=== PATIENT | male | born 1945 | race Caucasian/White ===

== ENCOUNTER 2020-11-15 23:50 | Emergency (ER) | payer MEDICARE, OTHER, SELFPAY ==
[2020-11-16 00:10] VITALS: BP 145/87; PULSE 84; RESP 16; TEMP 36.6; O2SAT 98; BMI 22.0
[2020-11-16 00:54] VITALS: BP 116/71; PULSE 87; RESP 15; TEMP 36.3; O2SAT 93
--- NOTE | 2020-11-16 00:56 | ED_ITS ---
HPI - Psych General Chief Complaint: Psychiatric Symptoms Stated Complaint: psychiatric symptoms Time Seen by Provider: 11/16/20 00:20 Source: patient Mode of arrival: ambulatory Limitations: no limitations History of Present Illness HPI Narrative: 75-year-old male with no significant past medical history or complaint presents for evaluation. States that he has been having a difficult time with an acquaintance, feels that she is in danger. Is asking for advice on how to obtain a wellness check. MD complaint: anxiety History of same: No Associated psychiatric symptoms: none Associated symptoms: denies other symptoms Related Data Allergies Allergy/AdvReac Type Severity Reaction Status Date / Time No Known Allergies Allergy Unverified 01/09/20 15:06 Review of Systems Review of Systems: Constitutional: No Fever, No Chills ENT/Mouth: No sore throat, No Rhinorrhea Eyes: No Eye Pain, No Swelling, No Redness Cardiovascular: No Chest Pain, No SOB Respiratory: No Cough, No Sputum Gastrointestinal: No Nausea, No Vomiting, No Diarrhea, No abdominal Pain Genitourinary: No Dysuria, No Hematuria Musculoskeletal: No joint pain, No Myalgias, No Joint Swelling Skin: No Skin Lesions, No rash Neuro: No Weakness, No Numbness, No Loss of Consciousness, No Dizziness, No Headache Psych: No Anxiety, No Depression, No SI/HI/AH/VH Heme/Lymph: No Bruising, No Bleeding,No Lymphadenopathy Endocrine: No Polyuria, No Polydipsia Yes all other systems are reviewed and are negative [facility] Past Medical History Attestation statement: The following information was validated with the patient. Source: old records reviewed Social History Social History Advance Directives: No Physical Exam Vital Signs: Vital Signs: Last Vital Signs Temp 97.4 F 11/16/20 00:54 Pulse 87 11/16/20 00:54 Resp 15 11/16/20 00:54 BP 116/71 11/16/20 00:54 Pulse Ox 93 11/16/20 00:54 Body Mass Index 22.0 Appearance: Alert. Oriented X3. No acute distress. Eyes: Pupils equal, round and reactive to light. ENT: Pharynx normal. Neck: Normal inspection. Neck supple. CVS: Normal heart rate and rhythm. Pulses normal. Respiratory: No respiratory distress. Breath sounds normal. Abdomen: Soft and nontender. Skin: Skin warm and dry. Normal skin color. Normal skin turgor. Extremities: No lower extremity edema. Gait well balanced well coordinated. Neuro: No motor deficit. No sensory deficit. Cranial nerves 2-12 intact. Course Course Course Narrative: 75-year-old male with no significant past medical history pre sents for concerns about a friend of his. Would like information about a wellness check. He has no complaints, denies suicidal ideation, homicidal ideation, does not have any psychiatric history and has no medical concerns at this time. Patient discharged home with no further care. MDM - Psych Differential Diagnosis Differential diagnosis: Likely acute anxiety Discharge Plan Discharge Clinical Impression: Acute anxiety Patient Disposition: Home, Self-Care Instructions: Normal Exam (ED) Additional Instructions: Thank you for choosing this emergency department for evaluation. Please fol low-up with primary care physician as needed. Return to the emergency department for any new, concerning, or worsening symptoms. Interventions: ED Discharge Assessment Last Done: 11/16/20 00:58 Discharge Date/Time: 11/16/20 01:05
--- NOTE | 2020-11-16 00:57 | MHC.CARE ---
CARE team provided support with pt who self presented to ED seeking to speak with someone about a situation that he has been going through for the past few days in hopes of being told whether he is doing right or wrong. Pt spoke at length and provided an abundance of information about a woman that he encountered at a [facility] in [place] at 6:30am this past Monday whom he had tried to help and then lost contact with. He proceeded to go to all of the police departments in the surrounding towns, including the [facility] in [place], requesting information about the woman in hopes of learning that she is safe and is not endangering others. At one of the banners, he was given a list of crisis numbers. He called some of the numbers and one person recommended requesting a wellness check. This was unsuccessful, as the woman had said that she was homeless and the address for her was inaccurate. This credit underwriter and ED provider Ana Wilson NP provided validation that pt had done all that he could to help this woman and validated his frustrations with the police departments and the overall system of public safety and wellness. Pt cleared for discharge home.
== END 2020-11-16 01:05 | disposition home or self-care (01) ==
PROVIDERS: Emergency Provider Emergency Medicine; PCP Internal Medicine
DX: F41.9 Anxiety disorder, unspecified (principal)
CPT/HCPCS: 99283